=== PATIENT | female | born 1935 | race Caucasian/White ===

== ENCOUNTER → 2019-12-19 | Emergency (ER) | payer MEDICARE ==
[~2019-12-19] VITALS: Ht 170.1 cm; Wt 49.4 kg
[~2019-12-19] MED LIST: ASCRIPTIN1 TA1 PO; CALCIUM LACTAT100 MG; KEFLEX500 MG PO; METFORMIN1000 MG PO; METFORMIN500 MG PO; VICO10300 PO
[2019-12-19 16:56] LABS: BASO % 0.2 % (0.0-1.0); EOS % 0.1 % (1.0-4.0); HEMATOCRIT 40.4 % (37.0-47.0); LYMPH # 1.7 10*3/uL (1.3-4.4); LYMPH % 15.8 % (27.0-41.0); MEAN CELL VOLUME 87.3 fl (81.0-99.0); MEAN CORPUSCULAR HGB 25.7 pg (27.0-31.0); MEAN CORPUSCULAR HGB CONC 29.5 g/dl (33.0-37.0); MEAN PLATELET VOLUME 10.1 fl (9.6-12.3); MONO # 0.6 10*3/uL (0.1-1.0); MONO % 5.6 % (3.0-9.0); NEUT # 8.2 10*3/uL (2.3-7.9); NEUT % 77.8 % (47.0-73.0); PLATELET COUNT AUTOMATED 122 10*3/uL (130-400); RED BLOOD COUNT 4.63 10*6/uL (4.10-5.10); RED CELL DISTRI WIDTH 21.7 % (0-14.5); WHITE BLOOD COUNT 10.5 10*3/uL (4.8-10.8)
[2019-12-19 17:07] LABS: ACT PARTIAL THROMBO TIME 28.4 SECONDS (20.0-32.1); INTERNATIONAL NORM RATIO 1.1 (2.0-3.5)
[2019-12-19 17:15] LABS: ALKALINE PHOSPHATASE 324 U/L (45-117); BUN 24 mg/dl (7-24); CHLORIDE 100 mmol/L (98-107); CREATININE 0.75 mg/dL (0.55-1.02); POTASSIUM 4.3 mmol/L (3.5-5.1); SGOT/AST 142 IU/L (3-35); SGPT/ALT 47 U/L (12-78); SODIUM 135 mmol/L (136-145); TOTAL PROTEIN 7.2 gm/dL (6.4-8.2)
[2019-12-19 17:16] LABS: TROPONIN I 0.029 ng/ml (<0.045)
== END ==
LOC: ED 16:35
PROVIDERS: Emergency Medicine
DX: I21.4 Non-ST elevation (NSTEMI) myocardial infarction (principal); C50.911 Malignant neoplasm of unspecified site of right female breast; R64 Cachexia; M79.641 Pain in right hand; M79.642 Pain in left hand; E11.9 Type 2 diabetes mellitus without complications; I48.91 Unspecified atrial fibrillation; Z88.8 Allergy status to other drugs, medicaments and biological substances; Z79.899 Other long term (current) drug therapy